=== PATIENT | female | born 1990 | race Two or more races ===

== ENCOUNTER 2018-09-12 00:43 | Emergency (ER) | payer SELFPAY ==
[~2018-09-12] VITALS: Ht 162.6 cm; Wt 61.2 kg
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
--- NOTE | 2018-09-12 01:22 | NUR ---
[employer] AT BEDSIDE SPEAKING WITH PATIENT.
[2018-09-12] MEDS ORDERED: ACETAMINOPHEN 325 MG TABLET ONE (01:38)
[2018-09-12] MEDS ORDERED: ACETAMINOPHEN 325 MG TABLET PO ONE (02:00)
[2018-09-12 02:51] VITALS: BP 121/74
== END 2018-09-12 02:51 | disposition home or self-care (01) ==
LOC: ER 00:48
DX: S00.83XA Contusion of other part of head, initial encounter (principal); S60.412A Abrasion of right middle finger, initial encounter; Y04.0XXA Assault by unarmed brawl or fight, initial encounter; Y93.89 Activity, other specified; Y92.89 Other specified places as the place of occurrence of the external cause; Y99.8 Other external cause status
CPT/HCPCS: 70450-TC